=== PATIENT | male | born 1960 | race Caucasian/White ===

== ENCOUNTER 2018-10-10 10:22 | Outpatient (CLI) | payer BC, SELFPAY ==
[2018-10-10 11:44] LABS: ALT 37 U/L (12-78); AST 25 U/L (15-37); Albumin 4.2 g/dL (3.4-5.0); Alkaline Phosphatase 84 U/L (46-116); Anion Gap 8.7 mmol/L (3-11); BUN 18 mg/dL (7-18); Bilirubin, Total 0.3 mg/dL (0.2-1.0); CO2 29.3 mmol/L (21.0-32.0); CREATININE 1.07 mg/dL (0.70-1.30); Calcium 9.6 mg/dL (8.5-10.1); Chloride 101 mmol/L (98-107); Cholesterol 231 mg/dL (50-200); Glucose 98 mg/dL (70-100); HDL Cholesterol 37 mg/dL (40-60); LDL CHOLESTEROL 120 mg/dL (<100); Potassium 4.3 mmol/L (3.5-5.1); Sodium 139 mmol/L (136-145); Total Protein 7.7 g/dL (6.4-8.2); Triglyceride 341 mg/dL (30-150)
[2018-10-11 10:35] LABS: Parathyroid Hormone,Intact 48 pg/ml (19-88)
== END 2018-10-10 10:42 ==
PROVIDERS: PCP Family Medicine; Visit Provider Family Medicine
DX: G56.00 Carpal tunnel syndrome, unspecified upper limb (principal); Z13.220 Encounter for screening for lipoid disorders
CPT/HCPCS: 36415; 80053; 80061; 83721; 83970

== ENCOUNTER 2019-08-09 09:54 | Outpatient (CLI) | payer BC, SELFPAY ==
--- NOTE | 2019-08-09 09:44 | DI.RAD_ITS ---
EXAM: XR ANKLE RT COMPLETE INDICATION: eversion injury, RT ankle, with malleolar tenderness, sprain,S93.409A. TECHNIQUE: 2D digital imaging was performed. FINDINGS: There are smoothly marginated bony densities beneath the medial malleolus. These appear to represen t old fracture fragments. No acute fracture is seen. There is no ankle mortise widening. There is a small defect of the lateral talar dome. Swelling is noted around both malleoli. There are also de generative changes at the tibiotalar and fibular talar joints. A plantar calcaneal spur is seen. IMPRESSION: Old medial malleolar fracture fragments and degenerative changes. No acute fracture is identified.
[2019-08-09 11:47] LABS: ALT 27 U/L (16-63); AST 27 U/L (15-37); Albumin 3.9 g/dL (3.4-5.0); Alkaline Phosphatase 67 U/L (46-116); Anion Gap 8.9 mmol/L (3-11); BUN 17 mg/dL (7-18); Bilirubin, Total 0.6 mg/dL (0.2-1.0); CO2 30.1 mmol/L (21.0-32.0); CREATININE 0.91 mg/dL (0.70-1.30); Calcium 9.3 mg/dL (8.5-10.1); Calculated LDL 165 mg/dL; Chloride 102 mmol/L (98-107); Cholesterol 243 mg/dL (50-200); Glucose 94 mg/dL (70-100); HDL Cholesterol 45 mg/dL (40-60); Potassium 4.4 mmol/L (3.5-5.1); Sodium 141 mmol/L (136-145); TSH 1.23 uIU/mL (0.36-3.74); Total Protein 7.4 g/dL (6.4-8.2); Triglyceride 166 mg/dL (30-150)
== END 2019-08-09 10:14 ==
PROVIDERS: PCP Family Medicine; Visit Provider Family Medicine
DX: S93.401A Sprain of unspecified ligament of right ankle, initial encounter (principal); M25.571 Pain in right ankle and joints of right foot; M79.89 Other specified soft tissue disorders; M77.31 Calcaneal spur, right foot; M19.071 Primary osteoarthritis, right ankle and foot; Z00.00 Encounter for general adult medical examination without abnormal findings; Z13.220 Encounter for screening for lipoid disorders; Z13.29 Encounter for screening for other suspected endocrine disorder
CPT/HCPCS: 36415; 80053; 80061; 73610; 84443

== ENCOUNTER 2021-01-20 04:17 | Outpatient (CLI) | payer BC, SELFPAY ==
[2021-01-20 12:41] LABS: Calculated LDL 170 mg/dL (<100); Cholesterol 249 mg/dL (<200); HDL Cholesterol 48 mg/dL (40-60); Triglyceride 157 mg/dL (<150)
[2021-01-20 13:06] LABS: Hemoglobin A1C 5.9 % (<5.7)
== END 2021-01-20 04:18 | disposition home or self-care (01) ==
LOC: LOS 04:17
PROVIDERS: PCP Family Medicine; Visit Provider Nurse Practitioner
DX: Z13.1 Encounter for screening for diabetes mellitus (principal); Z13.6 Encounter for screening for cardiovascular disorders
CPT/HCPCS: 36415; 80061; 83036

== ENCOUNTER 2021-11-13 01:58 | Outpatient (CLI) | payer BC, SELFPAY ==
[2021-11-13 09:37] LABS: Abs Immature Grans 0.02 10^3/uL (0.0-0.06); Absolute Basophil Count 0.07 10^3/uL (0.0-0.2); Absolute Eosinophil Count 0.41 10^3/uL (0.0-0.7); Absolute Lymphocyte Count 1.77 10^3/uL (1.2-3.4); Absolute Monocyte Count 0.76 10^3/uL (0.1-0.8); Absolute Neutrophil Count 3.41 10^3/uL (1.2-6.7); Basophils % 1.1; Eosinophils % 6.4; HCT 43.6 % (40.0-50.0); HGB 14.4 g/dL (13.5-17.5); Immature Grans % 0.3; Lymphocytes % 27.5; MCH 30.5 pg (27.0-33.0); MCV 92.4 fL (80-95); MPV 10.2 fL (8.0-11.0); Monocytes % 11.8; Neutrophils % 52.9; Nucleated RBC 0 %; Platelet Count 241 10^3/uL (130-400); RBC 4.72 10^6/uL (4.36-5.78); RDW 12.4 % (11.8-14.1); RDW-SD 42.6 fL; WBC 6.44 10^3/uL (4.4-10.8)
[2021-11-13 09:43] LABS: Hemoglobin A1C 5.6 % (<5.7)
[2021-11-13 10:50] LABS: Iron 72 ug/dL (65-175); Total Iron Binding Capacity 287 ug/dL (250-450); Transferrin Sat 25 % (20-55)
[2021-11-13 11:10] LABS: Vitamin D 25 Total 45.3 ng/mL (30-100)
[2021-11-13 11:16] LABS: ALT 21 U/L (16-63); AST 21 U/L (15-37); Albumin 4.1 g/dL (3.4-5.0); Alkaline Phosphatase 77 U/L (46-116); BUN 17 mg/dL (7-18); Bilirubin, Total 0.5 mg/dL (0.2-1.0); CREATININE 0.9 mg/dL (0.70-1.30); Calcium 9.1 mg/dL (8.5-10.1); Calculated LDL 171 mg/dL (<100); Chloride 104 mmol/L (98-107); Cholesterol 236 mg/dL (<200); Ferritin 548 ng/mL (26-388); Glucose 93 mg/dL (74-106); HDL Cholesterol 52 mg/dL (40-60); Potassium 4.3 mmol/L (3.5-5.1); Sodium 140 mmol/L (136-145); TSH 0.88 uIU/mL (0.36-3.74); Total Protein 7.3 g/dL (6.4-8.2); Triglyceride 68 mg/dL (<150); Vitamin B12 314 pg/mL (193-986)
[2021-11-13 12:43] LABS: FREE T4 0.83 ng/dL (0.76-1.46)
[2021-11-13 17:18] LABS: CRP, High Sensitivity 3.56 mg/L (See Note)
[2021-11-13 17:35] LABS: T3,Free 3.7 pg/mL (2.8-5.3)
[2021-11-14 11:03] LABS: Homocysteine 13.7 umol/L (5.0-13.9)
[2021-11-14 15:55] LABS: Lipoprotein (a) 8 nmol/L (<75)
== END 2021-11-13 01:59 | disposition home or self-care (01) ==
LOC: LBO 01:58
PROVIDERS: PCP Family Medicine; Visit Provider Naturopath
DX: E78.5 Hyperlipidemia, unspecified (principal); R53.83 Other fatigue; E55.9 Vitamin D deficiency, unspecified
CPT/HCPCS: 36415; 80053; 80061; 82306; 83090; 83695; 86141; 82607; 82728; 82746; 83036; 83540; 83550; 84439; 84443; 84481; 85025

== ENCOUNTER 2022-02-13 08:23 | Emergency (ER) | payer BC, SELFPAY ==
[2022-02-13] VITALS (21 sets, daily range): BP systolic 116–142; BP diastolic 64–87; PULSE 76–91; RESP 12–20; TEMP 36.9; O2SAT 92–99
--- NOTE | 2022-02-13 08:15 | RT.EKG_ITS ---
APPROVED REPORT Exam: Resting ECG Reason for Exam: Dyspnea Patient Location: E HR:85 bpm ECG Measurements Heart Rate 85 AXIS AZ 134 P 26 QRSd 74 QRS 27 QT 351 T 7 QTc 418 Conclusion Sinus rhythm...normal P axis, V-rate 60- 99. Sinus. Normal axis. No STEMI. I have reviewed and interpreted ECG and agree with software generated interpretation.
--- NOTE | 2022-02-13 08:25 | W.ED.GENAD ---
Discharge Plan Disposition Patient Disposition: HOME Condition: Improving Discharge Details Clinical Impression: Acute cervical myofascial strain, Chest wall muscle strain, Yu's cyst of knee Primary Care Provider: Aga Puga ED Provider: Pinky Marcos Home Meds and New Rx's Prescriptions: New methocarbamol 500 mg tablet 500 mg PO Q6H PRN (Reason: muscle spasm) Qty: 14 0RF Discharge Instructions Instructions: Cervical Strain (ED), Yu Cyst (ED), Chest Wall Pain (ED) Additional Instructions: Your lab work, EKG and CT scan of your chest today is reassuring and shows no evidence of acute concerning or significant findings. Your leg ultrasound today was negative for a blood clot but did show a cyst in the back of your knee. This is called a Yu's cyst. If you have no relief with bvry-hoi-rfeepdy NSAIDs such as ibuprofen or Aleve, you may require further evaluation with your primary care doctor or orthopedics for injection of a steroid or aspiration of the cyst if your symptoms do not improve or worsen. Take 600 mg of ibuprofen every 6 hours for the next 2 to 3 days. A prescription for the muscle relaxer methocarbamol has been sent electronically to your pharmacy. Call your primary care doctor today to schedule a follow-up appointment for reevaluation in the next 1 to 2 weeks. Return immediately to the emergency department if you develop any worsening or new concerning symptoms. Referrals: Jett Velásquez MD [ [facility] STAFF PHYSICIAN] - Discharge Data Discharge Physician: Pinky Mracos Medical Decision Making 61-year-old male who presents with right posterior knee pain and left lateral neck and trapezius pain over the past week. Also admits to chronic dyspnea on exertion but states this has been worse over the past week. Denies any substernal chest pain. Vitals within normal limits. EKG notes a rate of 85, sinus, normal axis, no STEMI and nondiagnostic. His right knee is normal to inspection without ligamentous laxity or evidence of trauma or cellulitis. His left lateral neck and trapezius and left anterior superior chest wall is tender to palpation and pain is reproducible with movement of his head and left upper extremity. Suspect the left paraspinal/trapezius/chest wall pain is secondary to muscle strain. Due to his history of recent travel, will obtain a right lower extremity ultrasound to rule out DVT versus Yu's cyst. Also obtain screening labs, CT chest to rule out PE. We will give a dose of Toradol, Decadron IV and Valium p.o. and reassess. Patient reassessed and he feels better. Ultrasound revealed Yu's cyst in the right posterior knee. Discussed with patient that this is likely the source of the pain. CT chest negative. Patient feels comfortable going home. He was advised to take NSAIDs of the next 2 days and then as needed. A prescription for methocarbamol was sent electronically to his pharmacy. He was advised to follow-up with his PCP for reevaluation and for referral to orthopedic if needed for further evaluation if needing steroid injection or cyst aspiration if knee pain does not improve or worsens. Medical Records Medical records reviewed: Yes I reviewed the patient's medical records. Imaging Data Radiologic Study: Radiologist's impression: US LOWER EXTREMITY VENOUS RT CLINICAL HISTORY: ? R posterior knee/calf pain, r/o dvt/yu's cyst.? TECHNIQUE: ? Lower extremity venous ultrasound performed using grayscale, color-flow, and spectral Doppler analysis. COMPARISON:? No exams were available for comparison FINDINGS: The common femoral, femoral and popliteal veins demonstrate normal compressibility, augmentation, and color Doppler. The posterior tibial veins are patent.? No saphenous vein thrombosis or other superficial venous thrombosis is seen.? There is a Yu's cyst measuring 3.4 x 2.2 x 3 cm. IMPRESSION: Small Yu's cyst..? No evidence of DVT.? CT CHEST PE CTA CLINICAL HISTORY: ? L neck/chest pain, r/o PE. TECHNIQUE:? Imaging Protocol:? Axial CT angiography was performed with multi-slice acquisition and multi-planar reconstructions as well as axial, coronal and sagittal MIP reconstructions. CONTRAST MATERIAL:? Intravenous: Omnipaque 350 Contrast volume:100 ml COMPARISON:? No exams were available for comparison FINDINGS: Pulmonary Arteries: No evidence of filling defect to suggest pulmonary emboli. Tracheobronchial tree: Patent where visualized. Mediastinum and Chelsi: No dominant adenopathy or fluid collection. Pulmonary parenchyma: No consolidation or dominant measurable mass. Pleura: No effusion or pneumothorax. Heart: The heart is not dilated. No coronary artery calcifications are seen. Aorta: Thoracic aorta non-dilated.? No aneurysm.? No dissection.? Upper abdomen:? Unremarkable. Bones: A prominent endplate osteophytes eccentric toward the right.? No rib or spine fracture. Soft tissues: Mild right gynecomastia.? IMPRESSION: No evidence of pulmonary embolism or other acute abnormality..? Lab Data Lab results reviewed: Yes I reviewed the patient's lab results. Labs: Laboratory Tests Range/Units 02/13/22 02/13/22 09:05 09:05 WBC (4.4-10.8) 10^3/uL 13.76 H RBC (4.36-5.78) 10^6/uL 4.87 Hgb (13.5-17.5) g/dL 14.7 Hct (40.0-50.0) % 44.0 MCV (80-95) fL 90.3 MCH (27.0-33.0) pg 30.2 MCHC (32.0-36.0) % 33.4 RDW (11.8-14.1) % 12.2 Plt Count (130-400) 10^3/uL 300 MPV (8.0-11.0) fL 10.0 Immature Gran % 0.4 Neutrophils % 73.1 Lymphocytes % 12.5 Monocytes % 11.7 Eosinophils % 1.8 Basophils % 0.5 Nucleated RBC % (0.0-0.3) % 0.0 Absolute Neutrophils (1.2-6.7) 10^3/uL 10.06 H Absolute Lymphocytes (1.2-3.4) 10^3/uL 1.72 Absolute Monocytes (0.1-0.8) 10^3/uL 1.61 H Absolute Eosinophils (0.0-0.7) 10^3/uL 0.25 Absolute Basophils (0.0-0.2) 10^3/uL 0.07 RBC Morphology Normal Sodium (136-145) mmol/L 137 Potassium (3.5-5.1) mmol/L 3.7 Chloride (98-107) mmol/L 101 Carbon Dioxide (21.0-32.0) mmol/L 29.5 Anion Gap (3-11) mmol/L 6.5 BUN (7-18) mg/dL 16 Creatinine (0.70-1.30) mg/dL 1.0 Estimated GFR/1.73 m2 (mL/min/1.73m2) >= 60.00 Glucose (74-106) mg/dL 96 Calcium (8.5-10.1) mg/dL 9.2 Magnesium (1.8-2.4) mg/dL 2.0 Total Bilirubin (0.2-1.0) mg/dL 0.6 AST (15-37) U/L 17 ALT (16-63) U/L 28 Alkaline Phosphatase (46-116) U/L 75 Troponin I (<or=60) ng/L < 50 Total Protein (6.4-8.2) g/dL 8.0 Albumin (3.4-5.0) g/dL 3.7 ECG Data Attestation: I personally reviewed and interpreted this ECG (s) as follows: Interpretation: Rate of 85, sinus, normal axis, no STEMI. HPI General Mode of arrival: ambulatory. Date/Time Provider Initiated Documentation: 02/13/22 08:24. Limitations to Documentation: no limitations. Information obtained by: patient. HPI Narrative: Patient is a 61-year-old male who presents with multiple complaints, most specifically right posterior knee pain and left neck and shoulder pain for the past week. Patient states the pain in his right posterior knee and upper calf is bothering him the most. He states it occurs at rest but is worse with movement and walking. He states the pain in his left neck and left trapezius area is worse with movement of his head and left upper extremity. He denies any known injury but states he went on vacation recently and was carrying heavy bags up and down stairs. He states he also does a lot of work around the house inside and out. He states he took Tylenol this week for pain without relief. He states he has chronic dyspnea on exertion for the past several years but states this has been worse for the past week. He denies any substernal chest pain, headache, fever, cough, nausea, vomiting, diarrhea or dizziness. He denies any weakness or numbness in his arms or legs. Related Data Home Medications Medication Instructions Recorded Confirmed methocarbamol 500 mg tablet 500 mg PO Q6H PRN #14 tab 02/13/22 Previous Rx's Medication Instructions Recorded methocarbamol 500 mg tablet 500 mg PO Q6H PRN #14 tab 02/13/22 Allergies Allergy/AdvReac Type Severity Reaction Status Date / Time No Known Allergies Allergy Verified 02/13/22 08:35 General Stated Complaint: GenMedical ZEENAT: 3 Review of Systems All systems reviewed & are unremarkable except as noted in HPI and below Constitutional Constitutional: Denies chills, Denies excessive sweating, Denies fatigue, Denies fever(s), Denies weakness and Denies weight loss Eyes Eyes: Reports system reviewed and no additional complaints, except as documented and Denies blurry vision ENT Ears, Nose, Mouth, and Throat: Denies vertigo, Denies dizziness, Denies otalgia, Denies nasal congestion, Denies sore throat and Denies throat swelling Cardiovascular Cardiovascular: Denies chest pain, Denies syncope, Denies rapid heart rate and Denies dyspnea Respiratory Respiratory: Denies chest congestion, Denies cough, Denies pain on inspiration and Denies dyspnea Gastrointestinal Gastrointestinal: Denies abdominal pain, Denies diarrhea and Denies vomiting Genitourinary Genitourinary: Denies hematuria, Denies dysuria and Denies flank pain Musculoskeletal Musculoskeletal: Denies back pain and Denies joint swelling Comments: L neck/shoulder pain, R posterior knee/upper calf pain Integumentary/Breasts Skin/Breast: Denies lesions and Denies rash Neurologic Neurologic: Denies behavioral changes, Denies confusion, Denies vertigo, Denies dizziness, Denies syncope, Denies localized weakness and Denies weakness Psychiatric Psychiatric: Denies behavioral changes, Denies confusion and Denies depression Endocrine Endocrine: Denies excessive sweating and Denies fatigue Hematologic/Lymphatic Hematologic/Lymphatic: Denies easy bruising and Denies lymphadenopathy Allergic/Immunologic Allergic/Immunologic: Denies throat swelling PFSH All Active Problems (Updated 02/13/22 @ 12:32 by Pinky Marcos DO) Acute cervical myofascial strain (Acute) Chest wall muscle strain (Acute) Yu's cyst of knee (Acute) Hyperlipidemia (Acute) Prediabetes (Acute) History of ankle fracture (Acute) Elevated LDL cholesterol level (Acute) History of hyperparathyroidism (Acute) Rupture of anterior cruciate ligament of both knees (Chronic) surgical repair Screening for colorectal cancer (Chronic) Medical History (Updated 02/13/22 @ 12:32 by Pinky Marcos DO) Hyperthyroidism Surgical History (Updated 09/14/18 @ 13:58 by Elen Dominguez) herniated disc Repair of umbilical hernia Repair, ACL S/P diskectomy S/P hemilaminotomy L3-L4 Family History (Updated 01/22/21 @ 10:23 by Akilah Garcia) Mother , AGE 83 Diabetes Heart disease Father No problems noted. Sister No problems noted. Brother No problems noted. Daughter No problems noted. Social History (Updated 08/09/19 @ 10:08 by Monty Rondon) Smoking/Tobacco Use Status: Never Second Hand Exposure: Yes Smoking risk assessment performed?: Yes Alcohol Intake: current Alcohol Intake frequency: a few times a week Alcohol type: beer, wine and hard liquor Drug use: Occasionally Substance use type: marijuana Adopted: Yes Caregiver/Support person: No Household members: spouse Housing: house Communication Needs: None current occupation: retired from [employer] Pets and animals: Yes Pets and animals: dog(s) Sexually active: Yes Do you think of yourself as: straight/heterosexual Current gender identity: male What is your relationship status?: How often do you talk on the phone with friends or family?: three or more times per week How often do you get together with friends or relatives?: twice per week How often do you attend jain or anglican services?: decline to answer Do you belong to any clubs or organized social groups?: decline to answer Panel score (0-1 are the most socially isolated patients): 2 What type of physical activity do you participate in: walking Duration: < 15 minutes/day Frequency: daily Perri/Christianity: Jain Special perri needs: No Seatbelt use: always Drive intox or ride w/intox recycling collections driver: No Exam Const General: cooperative and healthy appearing Orientation: alert and awake HENMT Head: normal to inspection Ears: hearing grossly normal bilaterally and external ears normal General nose exam: external nose normal Face and sinus: normal facial exam Mouth: oral mucosae normal Eyes General: appearance normal, both eyes and all related structures Eyelids: eyelids normal Pupils: PERRL EOM: EOM intact bilaterally Neck Neck: normal visual inspection Lymphatic: no lymphadenopathy noted Chest Chest: normal inspection of the chest Chest/axillae images: 1. Localized area of tenderness to palpation of L cervical paraspinal region, L anterior superior chest wall. No rash, lesions, erythema, edema, ecchymosis, crepitus. Resp Effort & Inspection: normal respiratory effort and able to speak in complete sentences Auscultation: clear to auscultation bilaterally Cardio Rate: regular rate Rhythm: regular rhythm GI Inspection: normal to inspection Palpation: soft, not firm, no guarding, no hepatosplenomegaly, no masses and nontender Auscultation: normal bowel sounds Back/Spine/Pelvis Back: no CVA tenderness Skin General skin exam: no rashes or lesions noted Neuro General: patient alert and patient awake Cognition: normal cognition Speech: speech normal Gait: normal gait Motor: muscle tone normal throughout Sensory Exam: no sensory deficits noted Extrem Other: Right anterior and posterior knee normal to inspection. Negative anterior or posterior drawer test of the right knee. No pain with right knee valgus or varus stress. Bilateral distal upper and lower extremity pulses intact. Psych Appearance: grossly normal Mental Status: mental status grossly normal Speech and Movement: speech and movement normal Affect: normal affect Thought Process: normal
--- NOTE | 2022-02-13 09:00 | DI.CT_ITS ---
Exam(s) CT CHEST PE CTA EXAM: CT CHEST PE CTA CLINICAL HISTORY: L neck/chest pain, r/o PE. TECHNIQUE: Imaging Protocol: Axial CT angiography was performed with multi-slice acquisition and mu lti-planar reconstructions as well as axial, coronal and sagittal MIP reconstructions. CONTRAST MATERIAL: Intravenous: Omnipaque 350 Contrast volume:100 ml COMPARISON: No exams were available for comparison FINDINGS: Pulmonary Arteries: No evidence of filling defect to suggest pulmonary emboli. Tracheobronchial tree: Patent where visualized. Mediastinum and Chelsi: No dominant adenopathy or fluid collection. Pulmonary parenchyma: No consolidation or dominant measurable mass. Pleura: No effusion or pneumothorax. Heart: The heart is not dilated. No coronary artery calcifications are seen. Aorta: Thoracic aorta non-dilated. No aneurysm. No dissection. Upper abdomen: Unremarkable. Bones: A prominent endplate osteophytes eccentric toward the right. No rib or spine fracture. Soft tissues: Mild right gynecomastia. IMPRESSION: No evidence of pulmonary embolism or other acute abnormality.. RADIATION DOSE DELIVERED: 526.05mGy.cm Total DLP DATA REPOSITORY: All CT scans at this facility are submitted to the National Radiology Data Registry (NRDR) Dose Index Registry (DIR) with the [employer] ([employer]). RADIATION OPTIMIZATION: All CT scans at this facility use at least one of these dose optimization te chniques: automated exposure control; mA and/or kV adjustment per patient size (includes targeted exa ms where dose is matched to clinical indication); or iterative reconstruction.
--- NOTE | 2022-02-13 09:00 | DI.US_ITS ---
Exam(s) US LOWER EXTREMITY VENOUS RT EXAM: US LOWER EXTREMITY VENOUS RT CLINICAL HISTORY: R posterior knee/calf pain, r/o dvt/yu's cyst. TECHNIQUE: Lower extremity venous ultrasound performed using grayscale, color-flow, and spectral Do ppler analysis. COMPARISON: No exams were available for comparison FINDINGS: The common femoral, femoral and popliteal veins demonstrate normal compressibility, augmentation, and color Doppler. The posterior tibial veins are patent. No saphenous vein thrombosis or other superfi cial venous thrombosis is seen. There is a Yu's cyst measuring 3.4 x 2.2 x 3 cm. IMPRESSION: Small Yu's cyst.. No evidence of DVT. DATA REPOSITORY:
[2022-02-13 09:33] LABS: Abs Immature Grans 0.06 10^3/uL (0.0-0.06); Absolute Basophil Count 0.07 10^3/uL (0.0-0.2); Absolute Eosinophil Count 0.25 10^3/uL (0.0-0.7); Absolute Lymphocyte Count 1.72 10^3/uL (1.2-3.4); Absolute Monocyte Count 1.61 10^3/uL (0.1-0.8); Basophils % 0.5; Eosinophils % 1.8; HGB 14.7 g/dL (13.5-17.5); Immature Grans % 0.4; Lymphocytes % 12.5; MCH 30.2 pg (27.0-33.0); MCHC 33.4 % (32.0-36.0); MCV 90.3 fL (80-95); Monocytes % 11.7; Neutrophils % 73.1; Platelet Count 300 10^3/uL (130-400); RBC 4.87 10^6/uL (4.36-5.78); RDW 12.2 % (11.8-14.1); RDW-SD 40.7 fL; WBC 13.76 10^3/uL (4.4-10.8)
[2022-02-13 09:35] LABS: Absolute Neutrophil Count 10.06 10^3/uL (1.2-6.7)
[2022-02-13 09:50] LABS: Diff Comment Diff Reviewed; RBC Morphology Normal
[2022-02-13 09:54] LABS: ALT 28 U/L (16-63); AST 17 U/L (15-37); Albumin 3.7 g/dL (3.4-5.0); Alkaline Phosphatase 75 U/L (46-116); Anion Gap 6.5 mmol/L (3-11); BUN 16 mg/dL (7-18); Bilirubin, Total 0.6 mg/dL (0.2-1.0); CO2 29.5 mmol/L (21.0-32.0); Calcium 9.2 mg/dL (8.5-10.1); Chloride 101 mmol/L (98-107); Glucose 96 mg/dL (74-106); Potassium 3.7 mmol/L (3.5-5.1); Sodium 137 mmol/L (136-145); Troponin I < 50 ng/L (<or=60)
[2022-02-13] MEDS: Dexamethasone 10 MG/ML VIAL IVP (10:02)
[2022-02-13] MEDS: Ketorolac 30 MG/ML VIAL IVP (10:02)
[2022-02-13] MEDS: diazePAM 5 MG TAB PO (10:02)
[2022-02-13] MEDS: Normal Saline 1,000 ML 1000 ML IV (10:11)
[2022-02-13 11:48] LABS: Source Nasal/Nares
[2022-02-13 12:33] LABS: COVID-19 PCR Negative (Negative)
== END 2022-02-13 12:48 | disposition home or self-care (01) ==
PROVIDERS: Emergency Provider Physician Assistant; PCP Family Medicine
DX: S16.1XXA Strain of muscle, fascia and tendon at neck level, initial encounter (principal); S29.011A Strain of muscle and tendon of front wall of thorax, initial encounter; X58.XXXA Exposure to other specified factors, initial encounter; M71.21 Synovial cyst of popliteal space [Baker], right knee; R06.00 Dyspnea, unspecified
CPT/HCPCS: 36415; 71275; 80053; 87635; 93005; 96361; 96374; 96375; 99284; 99285; 83735; 84484; 85025; 93010; 93971; J1100; J1885

== ENCOUNTER 2023-05-18 04:25 | Outpatient (CLI) | payer BC, SELFPAY ==
[2023-05-18 13:12] LABS: Anion Gap 8.6 mmol/L (3-11); BUN 19 mg/dL (7-18); CO2 26.4 mmol/L (21.0-32.0); Calcium 8.8 mg/dL (8.5-10.1); Calculated LDL 154 mg/dL (<100); Chloride 107 mmol/L (98-107); Cholesterol 221 mg/dL (<200); Estimated GFR 85.63 (mL/min/1.73m2); Glucose 101 mg/dL (74-106); HDL Cholesterol 54 mg/dL (40-60); Sodium 142 mmol/L (136-145); TSH (W/Ref FT4) 1.35 uIU/mL (0.36-3.74); Triglyceride 65 mg/dL (<150)
[2023-05-18 23:30] LABS: PSA, Screening 0.4 ng/mL (<=4.5)
== END 2023-05-18 04:26 | disposition home or self-care (01) ==
LOC: LOS 04:25
PROVIDERS: PCP Family Medicine; Visit Provider Family Medicine
DX: Z00.00 Encounter for general adult medical examination without abnormal findings (principal); Z12.5 Encounter for screening for malignant neoplasm of prostate; Z86.39 Personal history of other endocrine, nutritional and metabolic disease
CPT/HCPCS: 36415; 80048; 80061; 84153; 84443

== ENCOUNTER 2024-06-23 01:54 | Outpatient (CLI) | payer BC, SELFPAY ==
[2024-06-23 12:42] LABS: Anion Gap 8.2 mmol/L (3-11); BUN 18 mg/dL (7-18); CO2 28.8 mmol/L (21.0-32.0); Calcium 9.4 mg/dL (8.5-10.1); Calculated LDL 194 mg/dL (<100); Chloride 104 mmol/L (98-107); Cholesterol 263 mg/dL (<200); Glucose 91 mg/dL (74-106); HDL Cholesterol 53 mg/dL (40-60); Potassium 4.1 mmol/L (3.5-5.1); Sodium 141 mmol/L (136-145); Triglyceride 84 mg/dL (<150)
== END 2024-06-23 01:55 | disposition home or self-care (01) ==
LOC: LOS 01:55
PROVIDERS: PCP Family Medicine; Visit Provider Family Medicine
DX: Z13.6 Encounter for screening for cardiovascular disorders (principal); Z00.00 Encounter for general adult medical examination without abnormal findings
CPT/HCPCS: 36415; 80048; 80061

== ENCOUNTER 2025-05-11 13:23 | Outpatient (REF) | payer BC, SELFPAY ==
[2025-05-11 13:39] LABS: Anion Gap 9.1 mmol/L (3-11); BUN 16 mg/dL (7-18); CO2 29.9 mmol/L (21.0-32.0); Calcium 9.5 mg/dL (8.5-10.1); Calculated LDL 163 mg/dL (<100); Chloride 104 mmol/L (98-107); Cholesterol 235 mg/dL (<200); Estimated GFR 99.44 (mL/min/1.73m2); Glucose 91 mg/dL (74-106); HDL Cholesterol 57 mg/dL (>or=40); Potassium 4.0 mmol/L (3.5-5.1); Sodium 143 mmol/L (136-145); Triglyceride 78 mg/dL (<150)
== END 2025-05-11 13:24 | disposition home or self-care (01) ==
LOC: LBN 13:23
PROVIDERS: PCP Family Medicine; Visit Provider Family Medicine
DX: Z13.1 Encounter for screening for diabetes mellitus (principal); E78.2 Mixed hyperlipidemia; Z13.6 Encounter for screening for cardiovascular disorders
CPT/HCPCS: 80048; 80061